=== PATIENT | male | born 1970 | race Two or more races ===

== ENCOUNTER 2019-10-19 15:39 | Outpatient (CLI) | payer OTHER | END 2019-10-19 15:53 | disposition home or self-care (01) | LOC: LAB 15:39 | DX: M42.06 Juvenile osteochondrosis of spine, lumbar region (principal) ==

== ENCOUNTER → 2019-10-19 | Outpatient (CLI) | payer OTHER | END | disposition home or self-care (01) | LOC: RAD 15:01 | DX: M48.061 Spinal stenosis, lumbar region without neurogenic claudication (principal) ==

== ENCOUNTER → 2019-10-24 | Outpatient (CLI) | payer OTHER | END | disposition home or self-care (01) | LOC: RAD 15:21 | DX: M16.11 Unilateral primary osteoarthritis, right hip (principal); M42.06 Juvenile osteochondrosis of spine, lumbar region ==

== ENCOUNTER 2019-11-07 13:54 | Outpatient (CLI) | payer OTHER | END 2019-11-07 14:06 | disposition home or self-care (01) | LOC: RAD 13:54 | DX: M48.06 Spinal stenosis, lumbar region (principal) ==